=== PATIENT | male | born 1960 | race Caucasian/White ===

== ENCOUNTER 2021-04-24 00:21 | Day surgery (SDC) | payer BC, SELFPAY ==
[2021-04-04 14:00] VITALS: BMI 28.8
[2021-04-24 06:59] VITALS: BP 141/87; PULSE 61; RESP 18; TEMP 35.8; O2SAT 99
[2021-04-24 07:00] VITALS: BMI 29.9
[2021-04-24] MEDS: LACTATED RINGERS 1,000 ML 150 ML IV CONT (07:09)
--- NOTE | 2021-04-24 07:47 | WPDGICN ---
Assessment and Plan Assessment and plan (1) Encounter for screening colonoscopy: Code(s): Z12.11 - Encounter for screening for malignant neoplasm of colon Status: Acute Assessment and Plan: Patient presents today for screening colonoscopy. He appears to be at average risk for colon polyps. GI Consult Note Consult date/time: 04/24/21 07:47 HPI: Frederick Hopson is a 60 year old male Presents for screening colonoscopy. Patient's current weight appetite and bowel movements are normal. He denies abdominal pain. He has had no bleeding. Family history is noncontributory. Patient's last colonoscopy 10 years ago was unremarkable. Patient presents today for neoplasia screening. Review of Systems Review of Systems: All systems reviewed & are unremarkable except as noted in HPI and below PMFSH Social History Social History Smoking status: Never smoker Alcohol intake: current Drinks per week: 6 Living arrangements: with family Spiritual care concerns: No Meds Home Medications and Allergies Home Medications Medication Instructions Recorded Confirmed Type diphenhydramine-acetaminophen 1 tablet PO HS PRN 04/04/21 04/04/21 History [Tylenol PM Extra Strength] lorazepam 0.5 mg PO DAILY 04/04/21 04/04/21 History Allergies Allergy/AdvReac Type Severity Reaction Status Date / Time No Known Allergies Verified 04/04/21 13:59 Vital Signs Vital Signs - 24 hr 04/24/21 06:59 Temperature 96.5 F L Pulse Rate 61 Respiratory Rate 18 Blood Pressure 141/87 H Pulse Oximetry 99 Exam Narrative: Physical exam reveals patient be alert. Vital signs stable. HEENT exam is unremarkable. Patient is anicteric. Lungs are clear to auscultation and percussion. Heart is without murmur or extra sounds. Abdominal exam bowel sounds present soft nontender with no organomegaly. Digital external rectal exam is normal.
--- NOTE | 2021-04-24 07:52 | WPDANESEPPF ---
Anes - Initial Pre Proc Eval Procedure: Operation Date: 04/24/21 08:00 Proposed Procedures p Screening Colonoscopy - Sacha Pearce MD Date/Time: 04/24/21 07:52 Surgeon: Sacha Pearce MD Pre Op Diagnosis: neoplasm screening Patient Data Age: 60 Gender: M Height: 1.78 m Weight: 94.9 kg Last Vital Signs Temp 96.5 F L 04/24/21 06:59 Pulse 61 04/24/21 06:59 Resp 18 04/24/21 06:59 BP 141/87 H 04/24/21 06:59 Pulse Ox 99 04/24/21 06:59 Allergies Allergy/AdvReac Type Severity Reaction Status Date / Time No Known Allergies Verified 04/04/21 13:59 Home Medications Medication Instructions Recorded Confirmed Type diphenhydramine-acetaminophen 1 tablet PO HS PRN 04/04/21 04/04/21 History [Tylenol PM Extra Strength] lorazepam 0.5 mg PO DAILY 04/04/21 04/04/21 History Patient hx anesthesia problems: none Family hx anesthesia problems: none Results Review: All pre-operative results and documents have been reviewed as part of the pre-operative evaluation. [facility] Social History Social History Smoking status: Never smoker Alcohol intake: current Drinks per week: 6 Living arrangements: with family Spiritual care concerns: No Anes - Eval Final PreProcedure Day of Procedure 04/24/21 07:52 Patient weight: obese Heart: regular rate and rhythm Lungs: clear to auscultation Airway: Mallampati scale class II Last oral intake: >/= 8 hours ASA classification: II Emergent: no Anesthetic plan: proceed Anesthesia type and monitoring: general GIVS and standard monitoring Results Review: All pre-operative results and documents have been reviewed as part of the pre-operative evaluation. Informed Consent: The patient's anesthetic plan and its attendant risks and benefits were discussed with the patient/family/POA. Questions were solicited and answers provided to the satisfaction of the patient/family/POA.
[2021-04-24 08:26] VITALS: BP 113/74; PULSE 61; RESP 22; O2SAT 100
[2021-04-24 08:36] VITALS: BP 116/75; PULSE 57; RESP 16; O2SAT 98
[2021-04-24 08:46] VITALS: BP 128/84; PULSE 58; RESP 19; O2SAT 99
== END 2021-04-24 08:51 | disposition home or self-care (01) ==
PROVIDERS: PCP Internal Medicine; Visit Provider Internal Medicine Gastroenterology
PROC: 0DJD8ZZ Inspection of Lower Intestinal Tract, Via Natural or Artificial Opening Endoscopic (ICD-10-PCS; CPT 45378; principal; 2021-04-24 08:00)
DX: Z12.11 Encounter for screening for malignant neoplasm of colon (principal); D12.5 Benign neoplasm of sigmoid colon; E66.9 Obesity, unspecified; Z68.30 Body mass index [BMI] 30.0-30.9, adult
CPT/HCPCS: 45385; 88305; J2704; J7120